=== PATIENT | male | born 1945 | race Caucasian/White ===

== ENCOUNTER 2024-04-23 10:42 | Outpatient (CLI) | payer MEDICARE, BC | END 2024-04-23 10:43 | disposition home or self-care (01) | LOC: BICULT 10:42 | PROVIDERS: ATTEND Internal Medicine | DX: N18.31 Chronic kidney disease, stage 3a (principal); K76.0 Fatty (change of) liver, not elsewhere classified; N28.89 Other specified disorders of kidney and ureter | CPT/HCPCS: 76770 ==

== ENCOUNTER 2024-06-08 08:57 | Outpatient (CLI) | payer MEDICARE, BC ==
[2024-06-08] MEDS ORDERED: Iopamidol 370 76% 100 ML VIAL ONE (13:05)
== END 2024-06-08 08:58 | disposition home or self-care (01) ==
LOC: BICCT 08:57
PROVIDERS: ATTEND Internal Medicine
DX: K76.0 Fatty (change of) liver, not elsewhere classified (principal); R16.0 Hepatomegaly, not elsewhere classified; R93.89 Abnormal findings on diagnostic imaging of other specified body structures; K76.89 Other specified diseases of liver; N20.0 Calculus of kidney; R91.8 Other nonspecific abnormal finding of lung field; K31.89 Other diseases of stomach and duodenum
CPT/HCPCS: 71260; 74178; 82565; Q9967